=== PATIENT | male | born 2000 | race Caucasian/White ===

== ENCOUNTER 2024-10-28 22:37 | Emergency (ER) | payer SELFPAY ==
[~2024-10-28] VITALS: Ht 167.6 cm; Wt 95.5 kg
[2024-10-28 22:44] VITALS: BP 139/89; PULSE 98; RESP 20; TEMP 98.4; O2SAT 98
== END 2024-10-28 22:55 | disposition left against medical advice (07) ==
LOC: EMS 22:39
DX: S01.01XA Laceration without foreign body of scalp, initial encounter (principal); Z53.21 Procedure and treatment not carried out due to patient leaving prior to being seen by health care provider; Y04.0XXA Assault by unarmed brawl or fight, initial encounter; Y93.89 Activity, other specified; Y92.89 Other specified places as the place of occurrence of the external cause; Y99.8 Other external cause status